=== PATIENT | male | born 1965 | race Caucasian/White ===

== ENCOUNTER 2021-04-13 23:31 | Emergency (ER) | payer BC, OTHER ==
[~2021-04-13] VITALS: Ht 195.6 cm; Wt 100.7 kg
[2021-04-13 23:35] VITALS: BP 119/71
--- NOTE | 2021-04-14 02:21 | NUR ---
US at bedside performing doppler US of LE to assess for DVT. 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 Denies any injury/trauma to LLE. Endorses stiffness, tenderness, swelling, and redness.
[2021-04-14] MEDS ORDERED: APIXABAN 5 MG TABLET PO ONE (04:00)
[2021-04-14] MEDS ORDERED: APIXABAN 5 MG TABLET ONE (04:08)
--- NOTE | 2021-04-14 04:13 | NUR ---
Patient/Caregiver given discharge instructions and they have confirmed that they understand the instructions. Patient ambulatory with steady gait. NAD, all questions answered appropriately, denies additional needs at this time. No personal belongings left in room after discharge.
== END 2021-04-14 04:15 | disposition home or self-care (01) ==
LOC: ED 04-14 03:13
DX: I82.412 Acute embolism and thrombosis of left femoral vein (principal); I82.432 Acute embolism and thrombosis of left popliteal vein; E03.9 Hypothyroidism, unspecified
CPT/HCPCS: 99284